=== PATIENT | female | born 1950 | race Caucasian/White ===

== ENCOUNTER 2017-12-26 13:49 | Emergency (ER) | payer OTHER ==
[~2017-12-26] VITALS: Ht 167.6 cm; Wt 90.7 kg
--- NOTE | ~2017-12-26 | EKG ---
[address] [place] [address] ELECTROCARDIOGRAM REPORT Name: ROSANNEJUAN LIAM Room #: DEP [facility] [id number] Admission: 12/26/17 Attend Phys: Discharge: 12/26/17 Date of : 48 Report #: [id number] THIS REPORT FOR: //name// [facility] ED Test Date: 2017-12-26 Test Time: 14:06:39 Pat Name: JUAN LAY Department: Room: Gender: F Admissions Clinician: TERRENCE : 1950 Requested By: Aditi Mcbride Order Number: [id number] MD: Abel Raza Measurements Intervals [place] Rate: 78 P: 50 ID: 142 QRS: 24 QRSD: 86 T: 69 QT: 387 QTc: 441 Interpretive Statements Sinus rhythm Compared to ECG 10/08/2015 21:51:56 Sinus tachycardia no longer present Electronically Signed On 12-27-2017 10:46:33 CDT by Abel Raza [email or web address] <ELECTRONICALLY SIGNED> By: Abel Raza MD 12/27/17 1046 1406 1406 Abel Raza MD /EPI
[~2017-12-26 13:49] MED LIST: ADVAIR 250-501 EACH INH; LEVAQUIN 500 M500 MG PO; PHENERGAN 25 MG25 M1 PO; PRAVACHOL40 MG PO; PREDNISONE50 MG PO; PRILOSEC 20 MG20 MG PO
[2017-12-26 15:10] LABS: ABSOLUTE NEUTROPHILS 9.3 thou/uL (1.4-8.2); BASOPHILS 1.7 % (0.0-2.0); EOSINOPHILS 3.5 % (0.0-3.0); HEMATOCRIT 45.1 % (37.0-47.0); HEMOGLOBIN 15.1 gm/dL (12.0-15.0); LYMPHOCYTES 18.4 % (24.0-44.0); MCH 31.5 pg (26.0-34.0); MCHC 33.4 g/dL (28.0-37.0); MCV 94.3 fL (80.0-100.0); MONOCYTES 8.8 % (1.0-8.0); PLATELET COUNT 334 thou/uL (150-400); POLYS 67.6 % (36.0-66.0); RBC 4.78 mil/uL (4.20-5.00); RDW 13.8 % (10.5-14.5); WBC 13.8 thou/uL (4.0-11.0)
[2017-12-26 15:17] LABS: ANION GAP 5 mmol/L (7-16); BUN 13 mg/dL (7-18); CHLORIDE 104 mmol/L (98-107); CO2 28 mmol/L (21-32); CREATININE 0.8 mg/dL (0.6-1.0); GLUCOSE 91 mg/dL (74-106); POTASSIUM 4.4 mmol/L (3.5-5.1); SODIUM 137 mmol/L (136-145)
[2017-12-26 15:26] LABS: ALBUMIN 3.5 g/dL (3.4-5.0); LIPASE 551 U/L (73-393); SGOT 18 U/L (15-37); SGPT 22 U/L (30-65); TOTAL BILIRUBIN 0.4 mg/dL (<0.1-1.0); TOTAL PROTEIN 7.4 g/dL (6.4-8.2); TROPONIN-I <0.06 ng/mL (<0.06)
[2017-12-26] MEDS ORDERED: NORCO 5-325 TA1 EACH PO (16:25)
[2017-12-26] MEDS ORDERED: ONDANSETRON HCL4 M2 PO (16:25)
[2017-12-26 16:43] VITALS: BP 136/85
== END 2017-12-26 17:05 | disposition home or self-care (01) ==
LOC: ER 13:49
PROVIDERS: Nurse Practitioner Family
DX: K85.90 Acute pancreatitis without necrosis or infection, unspecified (principal); R06.02 Shortness of breath; F17.210 Nicotine dependence, cigarettes, uncomplicated; E78.00 Pure hypercholesterolemia, unspecified; J45.909 Unspecified asthma, uncomplicated; E66.01 Morbid (severe) obesity due to excess calories; Z88.5 Allergy status to narcotic agent

== ENCOUNTER 2019-03-28 10:13 | Emergency (ER) | payer OTHER ==
[~2019-03-28] VITALS: Ht 167.6 cm; Wt 92.1 kg
[~2019-03-28 10:13] MED LIST changes: +NORCO 5-325 TA1 EACH PO; +ONDANSETRON HCL4 M2 PO
[2019-03-28 11:12] LABS: ABSOLUTE NEUTROPHILS 8.1 thou/uL (1.4-8.2); BASOPHILS 1.1 % (0.0-2.0); EOSINOPHILS 3.5 % (0.0-3.0); HEMATOCRIT 45.8 % (37.0-47.0); HEMOGLOBIN 15.3 gm/dL (12.0-15.0); LYMPHOCYTES 18.6 % (24.0-44.0); MCH 32.3 pg (26.0-34.0); MCHC 33.5 g/dL (28.0-37.0); MCV 96.5 fL (80.0-100.0); MONOCYTES 6.8 % (1.0-8.0); PLATELET COUNT 337 thou/uL (150-400); RBC 4.75 mil/uL (4.20-5.00); RDW 13.2 % (10.5-14.5); WBC 11.6 thou/uL (4.0-11.0)
[2019-03-28 11:13] LABS: URINE BILIRUBIN NEGATIVE (Negative); URINE BLOOD 2+ (Negative); URINE CLARITY CLEAR; URINE COLOR YELLOW; URINE GLUCOSE-RANDOM* NEGATIVE (Negative); URINE KETONES NEGATIVE (Negative); URINE LEUKOCYTES-REFLEX 1+ (Negative); URINE NITRITE-REFLEX NEGATIVE (Negative); URINE PROTEIN (DIPSTICK) NEGATIVE (Negative); URINE SPECIFIC GRAVITY 1.025 (1.005-1.035); URINE UROBILINOGEN 0.2 E.U./dl (0.2-1.0)
[2019-03-28 11:20] LABS: ANION GAP 8 mmol/L (7-16); BUN 11 mg/dL (7-18); CALCIUM 8.9 mg/dL (8.5-10.1); CHLORIDE 104 mmol/L (98-107); CO2 28 mmol/L (21-32); CREATININE 0.7 mg/dL (0.6-1.0); GLUCOSE 106 mg/dL (74-106); POTASSIUM 3.9 mmol/L (3.5-5.1); SODIUM 140 mmol/L (136-145)
[2019-03-28 11:20] LABS: BACTERIA-REFLEX 1-9 Few /HPF (None Seen); CASTS None Seen /LPF (None Seen); CRYSTALS None Seen /LPF (None Seen); SQUAMOUS >10 Many /LPF (0-3); URINE RBC 3-10 Few /HPF (0-2); URINE WBC-REFLEX 6-15 Few /HPF (0-5)
[2019-03-28 11:26] LABS: ALBUMIN 3.3 g/dL (3.4-5.0); DIRECT BILIRUBIN < 0.1 mg/dL (<0.1-0.3); LIPASE 301 U/L (73-393); SGOT 18 U/L (15-37); SGPT 21 U/L (30-65); TOTAL BILIRUBIN 0.3 mg/dL (<0.1-1.0); TOTAL PROTEIN 7.4 g/dL (6.4-8.2)
[2019-03-28] MEDS ORDERED: KEFLEX500 M1 PO (12:24)
[2019-03-28 12:33] VITALS: BP 141/85
== END 2019-03-28 12:31 | disposition home or self-care (01) ==
LOC: ER 10:13
PROVIDERS: Emergency Medicine
DX: N39.0 Urinary tract infection, site not specified (principal); J45.909 Unspecified asthma, uncomplicated; E78.00 Pure hypercholesterolemia, unspecified; F17.210 Nicotine dependence, cigarettes, uncomplicated; Z88.5 Allergy status to narcotic agent

== ENCOUNTER 2019-11-11 09:37 | Emergency (ER) | payer OTHER ==
[~2019-11-11] VITALS: Ht 167.6 cm; Wt 93.4 kg
[~2019-11-11 09:37] MED LIST changes: +KEFLEX500 M1 PO
[2019-11-11 11:56] LABS: ABSOLUTE NEUTROPHILS 11.8 thou/uL (1.4-8.2); BASOPHILS 0.7 % (0.0-2.0); EOSINOPHILS 1.7 % (0.0-3.0); HEMATOCRIT 43.2 % (37.0-47.0); HEMOGLOBIN 14.7 gm/dL (12.0-15.0); LYMPHOCYTES 10.5 % (24.0-44.0); MCHC 34.2 g/dL (28.0-37.0); MCV 96.5 fL (80.0-100.0); MONOCYTES 6.3 % (1.0-8.0); PLATELET COUNT 354 thou/uL (150-400); POLYS 80.8 % (36.0-66.0); RBC 4.47 mil/uL (4.20-5.00); RDW 13.5 % (10.5-14.5); WBC 14.6 thou/uL (4.0-11.0)
[2019-11-11 12:03] LABS: ANION GAP 8 mmol/L (7-16); BUN 14 mg/dL (7-18); CALCIUM 8.7 mg/dL (8.5-10.1); CHLORIDE 104 mmol/L (98-107); CO2 29 mmol/L (21-32); CREATININE 0.8 mg/dL (0.6-1.0); GLUCOSE 111 mg/dL (74-106); POTASSIUM 3.9 mmol/L (3.5-5.1); SODIUM 141 mmol/L (136-145)
[2019-11-11 12:11] LABS: TROPONIN-I <0.06 ng/mL (<0.06)
[2019-11-11] MEDS ORDERED: ZPAK PO (12:39)
[2019-11-11] MEDS ORDERED: PREDNISONE 20 M20 MG PO (12:39)
[2019-11-11 13:01] VITALS: BP 179/72
--- NOTE | 2019-11-11 14:06 | EKG ---
[facility] [place] [address] ELECTROCARDIOGRAM REPORT Name: JUAN LAY LIAM Room #: REG [facility]#: [id number] Admission: 11/11/19 Attend Phys: Discharge: Date of : [birth year] Report #: [id number] THIS REPORT FOR: cc: Cristina Nunez MD, Kristin E. MD Couchonnal, Luis F. MD ~ THIS REPORT FOR: //name// [facility] ED Test Date: 2019-11-11 Test Time: 12:05:31 Pat Name: JUAN LAY Department: Room: Gender: Lining Stamper: [id number] : 1950 Requested By: Cayetano Szymanski Order Number: [id number] MD: Jadiel Silva Measurements Intervals [place] Rate: 87 P: 53 [place]: 138 QRS: 46 QRSD: 82 T: 76 QT: 369 QTc: 444 Interpretive Statements Sinus rhythm Compared to ECG 12/26/2017 14:06:39 No significant changes Electronically Signed On 11-11-2019 14:04:47 CDT by Jadiel Silva [email or web address] <ELECTRONICALLY SIGNED> By: Jadiel Silva MD 11/11/19 1404 1205 1205 Jadiel Silva MD /EPI
== END 2019-11-11 13:00 | disposition home or self-care (01) ==
LOC: ER 09:37
PROVIDERS: Emergency Medicine
DX: J44.1 Chronic obstructive pulmonary disease with (acute) exacerbation (principal); F17.210 Nicotine dependence, cigarettes, uncomplicated; E78.00 Pure hypercholesterolemia, unspecified; Z88.6 Allergy status to analgesic agent; Z79.899 Other long term (current) drug therapy

== ENCOUNTER 2021-07-23 06:58 | Emergency (ER) | payer OTHER ==
[~2021-07-23] VITALS: Ht 165.1 cm; Wt 90.7 kg
[~2021-07-23 06:58] MED LIST changes: +PREDNISONE 20 M20 MG PO; +ZPAK PO
[2021-07-23] MEDS ORDERED: AZITHROMYCIN 2250 MG PO (07:18)
[2021-07-23] MEDS ORDERED: LIPITOR 40 MG T40 M1 PO (07:19)
[2021-07-23] MEDS ORDERED: WIXELA 500-501 EACH INH (07:19)
[2021-07-23] MEDS ORDERED: ALENDRONATE SOD70 MG PO (07:20)
[2021-07-23] MEDS ORDERED: PROAIR RESPICL90 MCG INH (07:20)
[2021-07-23] MEDS ORDERED: SINGULAIR 10 MG10 M1 PO (07:20)
[2021-07-23] MEDS ORDERED: ASA81BEC PO (07:21)
[2021-07-23] MEDS ORDERED: PRILOSEC OTC20 MG PO (07:21)
[2021-07-23] MEDS ORDERED: TYLENOL ARTHRI650 MG PO (07:22)
[2021-07-23] MEDS ORDERED: VITAMIN D325 MC3 PO (07:22)
[2021-07-23] MEDS ORDERED: PAROXETINE HCL20 MG PO (07:23)
[2021-07-23 07:52] LABS: ABSOLUTE NEUTROPHILS 10.6 thou/uL (1.4-8.2); BASOPHILS 0.7 % (0.0-2.0); EOSINOPHILS 0.3 % (0.0-3.0); HEMATOCRIT 45.9 % (37.0-47.0); HEMOGLOBIN 15.2 gm/dL (12.0-15.0); LYMPHOCYTES 11.3 % (24.0-44.0); MCH 31.6 pg (26.0-34.0); MCHC 33.1 g/dL (28.0-37.0); MCV 95.5 fL (80.0-100.0); MONOCYTES 5.1 % (1.0-8.0); PLATELET COUNT 354 thou/uL (150-400); POLYS 82.6 % (36.0-66.0); RBC 4.81 mil/uL (4.20-5.00); RDW 13.6 % (10.5-14.5); WBC 12.8 thou/uL (4.0-11.0)
[2021-07-23 07:56] LABS: CALCIUM 9.1 mg/dL (8.5-10.1); CREATININE 0.7 mg/dL (0.6-1.0); POTASSIUM 3.9 mmol/L (3.5-5.1)
--- NOTE | 2021-07-23 08:22 | EKG ---
[place] [address] [facility] [place] [place] [address] ELECTROCARDIOGRAM REPORT Name: JUAN LAY LIAM [id number] Admission: 07/23/21 Attend Phys: Discharge: Date of : [birth year] Report #: [id number] [facility] ED Test Date: 2021-07-23 Test Time: 07:28:37 Pat Name: JUAN LAY Department: Room: Gender: F Customer Professional: andrew : 1950 Requested By: Neri Forrester Order Number: [id number] MD: Pradip Harding Measurements Intervals [place] Rate: 88 P: 54 [place]: 216 QRS: 49 QRSD: 84 T: 59 QT: 330 QTc: 400 Interpretive Statements Sinus rhythm Nonspecific ST segment abnormality Compared to ECG 11/11/2019 12:05:31 No significant change was found Electronically Signed On 07-23-2021 8:21:56 [employer]REL [employer] by Pradip Harding [email or web address] <ELECTRONICALLY SIGNED> By: Pradip Harding MD, [facility] 07/23/21 0821 0728 0728 Pradip Harding MD, [facility] /EPI
[2021-07-23] MEDS ORDERED: PREDNISONE 10 M10 MG PO (09:02)
[2021-07-23] MEDS ORDERED: DOXYCYCLINE 10100 MG PO (09:02)
[2021-07-23 09:14] VITALS: BP 132/66
== END 2021-07-23 09:15 | disposition home or self-care (01) ==
LOC: ER 06:58
PROVIDERS: Student in an Organized Health Care Education/Training Program
DX: R06.02 Shortness of breath (principal); Z20.822 Contact with and (suspected) exposure to COVID-19; J44.9 Chronic obstructive pulmonary disease, unspecified; E78.00 Pure hypercholesterolemia, unspecified; F17.210 Nicotine dependence, cigarettes, uncomplicated; F12.90 Cannabis use, unspecified, uncomplicated; Z79.51 Long term (current) use of inhaled steroids; Z79.899 Other long term (current) drug therapy; Z79.1 Long term (current) use of non-steroidal anti-inflammatories (NSAID); Z88.5 Allergy status to narcotic agent